=== PATIENT | female | born 1995 | race African-American/Black ===

== ENCOUNTER → 2020-05-18 | Outpatient (CLI) | payer MEDICAID ==
[~2020-05-18] MED LIST: ACHD5005 PO; AMOX500C2 PO; BENZ56AE TP; DCS100C PO; FERR325C PO; FRS325T PO; IBP600T1 PO; PREN1TAB25 PO; PREN1TAB71 PO
--- NOTE | 2020-05-18 10:53 | Diagnostic Imaging Report ---
INDICATION: survey. TECHNIQUE: Multiple real-time grayscale images were obtained over the gravid uterus. COMPARISON: None FINDINGS: There is a single live fetus in a cephalic presentation. heart rate was recorded at 142 bpm. Placenta is anterior and is somewhat low lying with tip approximately 1.7 cm from the internal cervical os. Amniotic fluid index is 12.5 cm. Cervical length is 5.1 cm. survey demonstrates bladder, stomach and brain to be unremarkable. There is four-chambered heart. There is three-vessel cord with normal insertion. Spines are unremarkable. kidneys are somewhat limited due to position. Biometrical measurements are as follows: Biparietal 5.26 cm, age 22 weeks 0 days. Head circumference 19.00 cm, age 21 weeks 2 days. Abdominal circumference 15.95 cm, age 21 weeks 1 days. Femur length 3.64 cm, age 21 weeks 4 days. Sonographic estimate age: 21 weeks 4 days. Sonographic estimated date of delivery: 09/24/2020. Estimated Weight: 415 gm (+/- 61 gm). LMP percentile: 89%. heart rate: 142 beats per minute. number: 1 of 1. IMPRESSION: Single live IUP 21 weeks 4 days gestational age with estimated date of confinement sonographically of 09/24/2020. survey is unremarkable. The placenta does appear to be low lying. A follow-up ultrasound to reevaluate placental position would be recommended. Dictated by: Dictated on workstation # [id number]
== END ==
LOC: RAD 10:00
PROVIDERS: ATTEND Nurse Practitioner Women's Health
DX: Z36.89 Encounter for other specified antenatal screening (principal); Z3A.21 21 weeks gestation of pregnancy
CPT/HCPCS: 76805

== ENCOUNTER → 2020-07-10 | Outpatient (CLI) | payer MEDICAID ==
--- NOTE | 2020-07-10 12:22 | Diagnostic Imaging Report ---
INDICATION: . TECHNIQUE: Multiple real-time grayscale images were obtained over the gravid uterus. COMPARISON: 05/18/2020. FINDINGS: The prior OB ultrasound exam of 05/18/2020 noted a single live fetus of approximately 21 weeks 4 days gestation. On this study, the fetus is again visualized. The fetus is cephalic in presentation. heart motion was noted and a rate of 140 BPM was recorded. There were no abnormalities identified. The kidneys were imaged today and appear to be within normal limits. The prior exam noted that the placenta is anterior and low lying. The placenta remains anterior. There is no evidence for a previa, however. The amniotic fluid volume is within normal limits. The cervix was identified and measures 4.3 cm in length. The growth parameters are fairly uniform and have progressed as expected since the prior exam. The estimated weight is in the 82nd percentile. IMPRESSION: 1. There is a single live fetus of approximately 29 weeks 6 days gestation +/-1.5 weeks. The EDC remains September 24, 2020. 2. There were no abnormalities identified. 3. The placenta is anterior but is no longer low lying. There is no previa. 4. The growth parameters have progressed as expected since the prior exam tending towards the high side of normal. Biometrical measurements are as follows: Biparietal 7.62 cm, age 30 weeks 4 days. Head circumference 27.46 cm, age 30 weeks 1 days. Abdominal circumference 24.09 cm, age 28 weeks 3 days. Femur length 5.69 cm, age 29 weeks 6 days. Sonographic estimate age: 29 weeks 6 days. Sonographic estimated date of delivery: 09/19/2020. Estimated Weight: 1348 gm (+/- 197 gm). LMP percentile: 82%. heart rate: 140 beats per minute. number: 1 of 1. Dictated by: Dictated on workstation # [id number]
== END ==
LOC: RAD 10:00
PROVIDERS: ATTEND Obstetrics & Gynecology
DX: Z34.93 Encounter for supervision of normal pregnancy, unspecified, third trimester (principal); Z3A.29 29 weeks gestation of pregnancy
CPT/HCPCS: 76805

== ENCOUNTER → 2020-09-14 | Outpatient (CLI) | payer MEDICAID | LOC: LABNPT 05:20 | PROVIDERS: ATTEND Obstetrics & Gynecology | DX: Z01.812 Encounter for preprocedural laboratory examination (principal); Z20.828 Contact with and (suspected) exposure to other viral communicable diseases | CPT/HCPCS: 87635 ==

== ENCOUNTER 2020-09-19 06:00 | Inpatient (IN) | payer OTHER, MEDICAID ==
[2020-09-19] VITALS (66 sets, daily range): BP systolic 101–138; BP diastolic 55–90
[~2020-09-19] VITALS: Ht 170.2 cm; Wt 108.3 kg
--- NOTE | 2020-09-19 06:13 | NUR ---
TOBY JACOBSON presented to unit via ambulation from ED, accompanied by s.o. for induction of labor. TOBY JACOBSON weighed, gowned, voided, and to bed. EFHM and TOCO applied, VS taken. TOBY JACOBSON oriented to bed controls, call light, TV, heat, and A/C controls.
[2020-09-19] MEDS ORDERED: MINERAL OIL CONCENTRATE 99.9% 15 ML UDC TOP PRN (07:15)
[2020-09-19] MEDS ORDERED: OXYTOCIN PRE-MIX DRIP 500 ML IV SCH ×2 (07:15→18:45)
[2020-09-19] MEDS ORDERED: D5 LR IV SOLUTION 1,000 ML IV SCH (07:15)
[2020-09-19 07:26] LABS: BASOPHILS % (AUTO) 0 % (0-10); EOSINOPHILS # (AUTO) 0.1 10^3/uL (0.0-0.3); EOSINOPHILS % (AUTO) 1 % (0-10); HEMATOCRIT 31 % (35-52); HEMOGLOBIN 9.9 g/dL (11.5-16.0); LYMPHOCYTES # (AUTO) 2.1 10^3/uL (1.0-4.0); LYMPHOCYTES % (AUTO) 25 % (12-44); MEAN CORPUSCULAR HEMOGLOBIN 26 pg (25-34); MEAN CORPUSCULAR HGB CONC 32 g/dL (32-36); MEAN CORPUSCULAR VOLUME 83 fL (80-99); MEAN PLATELET VOLUME 11.8 fL (9.0-12.2); MONOCYTES % (AUTO) 12 % (0-12); NEUTROPHILS % (AUTO) 60 % (42-75); PLATELET COUNT 258 10^3/uL (130-400); WHITE BLOOD COUNT 8.2 10^3/uL (4.3-11.0)
--- NOTE | 2020-09-19 07:27 | History & Physical-OB ---
OB - Chief Complaint & HPI Date/Time Date of Admission: Date of Admission: Sep 19, 2020 at 06:05 Time Seen by a Provider: 07:30 Chief Complaint/History OB-Reason for Admission/Chief: Induction of Labor (39 1/7 weeks to prevent complications) Hx : 4 Hx Para: 3 Expected Date of Delivery: Sep 24, 2020 Indication for : other (to prevent complications, EDC 09/24/2020) Admission Nurse Assessment Rev: Yes History of Labs O+/- HIV - HBsAG- GBS - VDRL NR Rub I Allergies and Home Medications Allergies Coded Allergies: No Known Drug Allergies (Unverified , 06/24/13) Home Medications Acetaminophen 500 Mg Tablet, 1,000 MG PO Q8HR Prescribed by: KACIE ORTEGA on 09/20/20 1322 Ferrous Sulfate 325 Mg Tablet, 325 MG PO DAILY Prescribed by: KACIE ORTEGA on 09/20/20 1322 Ibuprofen 600 Mg Tablet, 600 MG PO Q6HR Prescribed by: KACIE ORTEGA on 09/20/20 1322 Vit#96/Ferrous Fum/Fa 1 Each Tablet, 1 EACH PO DAILY, (Reported) Patient Home Medication List Home Medication List Reviewed: Yes OB - History Hx of Present Ultrasounds: Normal mid trimester US (did have lowlying placenta that resolved; redated by US to 09/24/2020 due to incorrect LMP) Obstetrical Complications: None Medical Complications: None Information Induced Hypertension: No Maternal Gestational Diabetes: No Hemorrhage: No Obstetrical History Hx : 4 Hx Para: 3 Hx # Term Pregnancies: 3 Hx # Pregnancies: 0 Number of Living Children: 3 Hx Termination: No Hx Total # of Abortions (Spona: 0 Hx Multiple Gestation: No Hx Stillbirth: No Hx Complication: No Hx Induced Hypertens: No Hx Maternal Gestational Diabet: No Delivery History Hx Dystocia: No Hx Forceps Assisted Delivery: No Hx Vacuum Extraction Assisted: No Hx Placenta Abnormality: No Hx Distress: No Hx Large For Gestational Age I: No Hx Small for Gestational Age I: No Hx Section: No Hx Vaginal Delivery Post C-Sec: No Hx Blood Disorders: Yes (anemia) Adverse Rxn to Tranfusion: No Patient Past Medical History NC Social History/Family History HIV/AIDS: No Sexually Transmitted Disease: No Alcohol Use: Denies Use Smoking Cessation: Never smoker Immunizations Hepatitis A: No Hepatitis B: No Tetanus Booster (TDap): Less than 5yrs (07/19/2020) Date of Influenza Vaccine: Jul 19, 2020 Rubella: immune RPR/VDRL: Negative GBS Status: Negative HBsAG: Negative OB - Admission Exam Physical Exam Vitals: see RN Notes Heart: Rhythm Normal Lungs: Clear, Crackles Abdomen: Gravid Extremities: Edema (1+) Reflexes: Normal Cervical Dilatation: 2cm Effacement: 50% Station: -2 Membranes: Intact Heart Rate: 140's Accelerations: Accelerations Present Decelerations: No Decelerations Short Term Variability: Present Casting Machine Operator Variability: Average (6-25) Contractions on Admission: >10 Minutes Apart Labs Laboratory Tests Test 09/19/20 06:45 Range/Units OB - Assessment/Plan/Diagnosis Assessment Assessment: induction of labor Admission Dx 1. 39 + week gestation for induction of labor 2. antepartume anemia Plan AROM and augmentation Desires epidural Admission Status: Inpatient Order (span 2 midnights) (labor) Reason for Inpatient Admission: labor Plan Plan: Induction KACIE ORTEGA DO Sep 19, 2020 07:27
[2020-09-19 07:36] LABS: ALANINE AMINOTRANSFERASE 11 U/L (0-55); ALBUMIN 3.4 GM/DL (3.2-4.5); ALKALINE PHOSPHATASE 148 U/L (40-136); BILIRUBIN,TOTAL 0.2 MG/DL (0.1-1.0); BUN/CREATININE RATIO 16; CARBON DIOXIDE 19 MMOL/L (21-32); CHLORIDE 106 MMOL/L (98-107); GFR ESTIMATED > 60; GLUCOSE 127 MG/DL (70-105); POTASSIUM 3.7 MMOL/L (3.6-5.0); SODIUM 134 MMOL/L (135-145)
[2020-09-19] MEDS ORDERED: diphenhydrAMINE 50 MG/ML INJ (BENADRYL) IV PRN (10:15)
[2020-09-19] MEDS ORDERED: LACTATED RINGERS 1,000 ML IV ONE (10:15)
[2020-09-19] MEDS ORDERED: ONDANSETRON 4 MG/2 ML (SDV) Z0FRAN IV PRN (10:15)
[2020-09-19] MEDS ORDERED: fentaNYL 2 mcg/ml BUPIVA 0.125 100 ML IV SCH (10:15)
[2020-09-19] MEDS ORDERED: NALOXONE 0.4 MG/ML 1 ML (NARCAN) VIAL IV PRN (10:15)
[2020-09-19] MEDS ORDERED: CATHETER FLUSH 10 ML SYR IV PRN (10:15)
[2020-09-19] MEDS ORDERED: fentaNYL INJECTION 100 MCG/2 ML AMP ONE (10:54)
[2020-09-19] MEDS ORDERED: BUPIVACAINE 0.25% 30 ML (SENSORCAINE) VIAL ONE (10:54)
[2020-09-19] MEDS ORDERED: CATHETER FLUSH 10 ML SYR IV SCH ×2 (14:00→22:00)
[2020-09-19 14:45] LABS: BILIRUBIN,URINE NEGATIVE (NEGATIVE); CLARITY,URINE CLEAR; COLOR,URINE YELLOW; GLUCOSE, URINE (UA) NEGATIVE (NEGATIVE); KETONES,URINE NEGATIVE (NEGATIVE); LEUKOCYTE ESTERASE ,URINE NEGATIVE (NEGATIVE); NITRITE,URINE NEGATIVE (NEGATIVE); PROTEIN,URINE NEGATIVE (NEGATIVE)
[2020-09-19 15:09] LABS: BACTERIA,URINE NEGATIVE /HPF; SQUAMOUS EPITHELIAL CELL,UR 0-2 /HPF; WBC,URINE RARE /HPF
[2020-09-19] MEDS ORDERED: LIDOCAINE 1% INJ 20 ML 20 ML VIAL ONE (17:11)
[2020-09-19] MEDS ORDERED: LIDOCAINE/EPI 2% 1:200,00 (XYLOCAINE) 10 ML VIAL ONE ×2 (17:13)
[2020-09-19] MEDS ORDERED: MEASLES,MUMPS,RUBELLA 1 EA INJ SQ ONE (18:45)
[2020-09-19] MEDS ORDERED: WITCH HAZEL(TUCKS) 40 EA JAR TOP PRN (18:45)
[2020-09-19] MEDS ORDERED: TETANUS,DIPTH,PERTUSS P/F (BOOSTRIX) 0.5 ML VIAL IM ONE (18:45)
[2020-09-19] MEDS ORDERED: BENZOCAINE/MENTHOL (DERMOPLAST) 60 ML CAN TP PRN (18:45)
--- NOTE | 2020-09-19 18:45 | OB Labor & Delivery Record ---
Vag Delivery Note Vag Delivery Note Date of Delivery: 09/19/20 Preoperative Diagnosis: Terra Trevino is a (24 /Para 4/3 ,Gestational Age 39 1/7 weeks Postoperative Diagnosis: Same Surgeon: KACIE ORTEGA Anesthesia: epidrual Delivery Type: vaginal Findings: Viable male infant, apgars pending, weight 7#12 ounces Lacerations: none Intact placenta with 3 vessel cord. Nuchal cord x 2 delivered through, compound presentation with had a chin, no body cord or shoulder dystocia Estimated Blood Loss: 200 ml Complications: None Condition: Stable Description of Procedure: The patient is a 24 year old female who presented for induction of labor at term to prevent complications. She was admitted and informed consent was obtained. Her labor course was remarkable for oxytocin augmentation, AROM. She progressed to complete dilatation and began to push. She was then set up for delivery. The 's head was delivered atraumatically in the EFREM position. The shoulders and remainder of the infant's body were then delivered without difficulty. Upon delivery, the head was held below the level of the perineum and the mouth and nares were bulb suctioned. The cord was doubly clamped and cut and the infant was handed off to the pediatric staff. An intact placenta with an accessory with 3-vessel cord, but unusual cord twists, delivered via Rafael and there was found to be minimal bleeding.~ Vigorous fundal massage was performed and the fundus was found to be firm. IV oxytocin was given. Examination of the vagina and perineum revealed a no laceration. Following the delivery, sponge, instrument and needle counts were correct. Mom and baby were both in stable condition in the labor suite. Vitals - Labs Vital Signs - I&O Vital Signs Date Time Temp Pulse Resp B/P (MAP) Pulse Ox O2 Delivery O2 Flow Rate FiO2 09/19/20 14:35 83 16 119/60 (79) Non Rebreather 15.00 09/19/20 14:20 80 16 122/63 (82) Non Rebreather 15.00 09/19/20 14:05 82 16 122/67 (85) Room Air 09/19/20 13:55 75 16 121/66 (84) 99 Room Air 09/19/20 13:40 36.4 95 16 118/61 (80) 99 Room Air 09/19/20 13:20 90 16 116/73 (87) 99 Room Air 09/19/20 13:05 77 16 115/60 (78) 98 Room Air 09/19/20 12:50 78 16 118/63 (81) 100 Room Air 09/19/20 12:35 86 16 113/69 (84) 100 Room Air 09/19/20 12:25 87 16 115/70 (85) 100 Room Air 09/19/20 12:05 87 16 115/90 (98) 100 Room Air 09/19/20 12:01 98 16 129/78 (95) 100 Room Air 09/19/20 11:58 91 16 122/63 (82) 100 Room Air 09/19/20 11:55 97 16 130/69 (89) 100 Room Air 09/19/20 11:53 91 16 108/81 (90) 100 Room Air 09/19/20 11:50 93 16 131/77 (95) 100 Room Air 09/19/20 11:45 91 16 123/69 (87) 100 Room Air 09/19/20 11:43 83 16 117/67 (84) 100 Non Rebreather 15.00 09/19/20 11:40 94 16 117/58 (77) 100 Non Rebreather 15.00 09/19/20 11:38 81 16 118/58 (78) 100 Non Rebreather 15.00 09/19/20 11:35 85 16 118/57 (77) 100 Non Rebreather 15.00 09/19/20 11:30 97 16 129/63 (85) 100 Non Rebreather 15.00 09/19/20 11:28 93 16 129/71 (90) 100 Non Rebreather 15.00 09/19/20 11:24 97 16 131/77 (95) 100 Non Rebreather 15.00 09/19/20 11:21 88 16 117/65 (82) 100 Non Rebreather 15.00 09/19/20 11:18 93 16 125/71 (89) 100 Non Rebreather 15.00 09/19/20 11:15 92 16 122/65 (84) 100 Non Rebreather 15.00 09/19/20 11:12 99 16 126/66 (86) 100 Non Rebreather 15.00 09/19/20 11:09 100 16 133/64 (87) 100 Non Rebreather 15.00 12/29/20 11:06 103 16 134/77 (96) 100 Non Rebreather 15.00 09/19/20 11:03 98 16 126/76 (93) 100 Non Rebreather 15.00 09/19/20 10:50 94 16 134/80 (98) 100 Non Rebreather 15.00 09/19/20 10:35 36.3 91 16 124/71 (88) 100 Non Rebreather 15.00 09/19/20 10:20 86 16 117/72 (87) 100 Non Rebreather 15.00 09/19/20 10:05 96 16 128/79 (95) 100 Non Rebreather 15.00 09/19/20 09:50 95 16 127/79 (95) 98 Room Air 09/19/20 09:35 91 16 117/78 (91) 99 Room Air 09/19/20 09:20 86 16 116/72 (87) Room Air 09/19/20 09:05 88 16 122/76 (91) 98 Room Air 09/19/20 08:50 83 16 120/75 (90) Room Air 09/19/20 08:35 92 16 126/82 (97) Room Air 09/19/20 08:20 36.6 86 16 127/73 (91) Room Air 09/19/20 07:38 36.7 103 16 99 Room Air 09/19/20 07:30 36.6 96 16 124/73 (90) 98 Room Air Labs Laboratory Tests 09/19/20 06:45: White Blood Count 8.2, Red Blood Count 3.75L, Hemoglobin 9.9L, Hematocrit 31L, Mean Corpuscular Volume 83, Mean Corpuscular Hemoglobin 26, Mean Corpuscular Hemoglobin Concent 32, Red Cell Distribution Width 15.9H, Platelet Count 258, Mean Platelet Volume 11.8, Immature Granulocyte % (Auto) 1, Neutrophils (%) (Auto) 60, Lymphocytes (%) (Auto) 25, Monocytes (%) (Auto) 12, Eosinophils (%) (Auto) 1, Basophils (%) (Auto) 0, Neutrophils # (Auto) 5.0, Lymphocytes # (Auto) 2.1, Monocytes # (Auto) 1.0, Eosinophils # (Auto) 0.1, Basophils # (Auto) 0.0, Immature Granulocyte # (Auto) 0.1, Sodium Level 134L, Potassium Level 3.7, Chloride Level 106, Carbon Dioxide Level 19L, Anion Gap 9, Blood Urea Nitrogen 11, Creatinine 0.70, Estimat Glomerular Filtration Rate > 60, BUN/Creatinine Ratio 16, Glucose Level 127H, Calcium Level 9.0, Corrected Calcium 9.5, Total Bilirubin 0.2, Aspartate Amino Transf (AST/SGOT) 17, Alanine Aminotransferase (A LT/SGPT) 11, Alkaline Phosphatase 148H, Total Protein 7.0, Albumin 3.4 09/19/20 14:30: Urine Color YELLOW, Urine Clarity CLEAR, Urine pH 7.0, Urine Specific [place] 1.010L, Urine Protein NEGATIVE, Urine Glucose (UA) NEGATIVE, Urine Ketones NEGATIVE, Urine Nitrite NEGATIVE, Urine Bilirubin NEGATIVE, Urine Urobilinogen 0 .2, Urine Leukocyte Esterase NEGATIVE, Urine RBC (Auto) NEGATIVE, Urine RBC NONE, Urine WBC RARE, Urine Squamous Epithelial Cells 0-2, Urine Crystals NONE, Urine Bacteria NEGATIVE, Urine Casts NONE, Urine Mucus NEGATIVE, Urine Culture Indicated NO KACIE ORTEGA DO Sep 19, 2020 18:45
[2020-09-19] MEDS ORDERED: DOCUSATE SODIUM 100 MG (COLACE) CAP PO SCH (21:00)
[2020-09-19] MEDS ORDERED: ACETAMINOPHEN 500 MG TAB (TYLENOL) PO SCH (22:00)
--- NOTE | 2020-09-19 22:15 | NUR ---
Epidural cath removed, cath tip in tact, site wnl left o/a. Pt up standby to bathroom, pericare pads changed, first void noted since delivery, pt to and transferred to pp unit room 308, pt remains under care of this rn. oriented to call system and surroundings, and info packet. will cont to monitor.
[2020-09-20 00:10] VITALS: BP 111/54
[2020-09-20] MEDS: IBUPROFEN 600 MG (MOTRIN) TAB PO SCH ×3 (02:47→16:22)
[2020-09-20 02:50] VITALS: BP 103/54
[2020-09-20 05:47] LABS: BASOPHILS % (AUTO) 0 % (0-10); EOSINOPHILS # (AUTO) 0.1 10^3/uL (0.0-0.3); EOSINOPHILS % (AUTO) 1 % (0-10); HEMATOCRIT 30 % (35-52); HEMOGLOBIN 9.5 g/dL (11.5-16.0); LYMPHOCYTES # (AUTO) 2.3 10^3/uL (1.0-4.0); LYMPHOCYTES % (AUTO) 24 % (12-44); MEAN CORPUSCULAR HEMOGLOBIN 26 pg (25-34); MEAN CORPUSCULAR HGB CONC 32 g/dL (32-36); MEAN CORPUSCULAR VOLUME 83 fL (80-99); MEAN PLATELET VOLUME 11.1 fL (9.0-12.2); MONOCYTES # (AUTO) 1.1 10^3/uL (0.0-1.0); MONOCYTES % (AUTO) 11 % (0-12); NEUTROPHILS # (AUTO) 5.9 10^3/uL (1.8-7.8); NEUTROPHILS % (AUTO) 63 % (42-75); PLATELET COUNT 231 10^3/uL (130-400); WHITE BLOOD COUNT 9.5 10^3/uL (4.3-11.0)
[2020-09-20] MEDS ORDERED: PRENATAL VITAMIN 1 EA TAB PO SCH (07:00)
--- NOTE | 2020-09-20 08:54 | Anesthesia-Regional Post-Op ---
Regional Patient Condition Mental Status: Alert, Oriented x3 Circulation: Same as Pre-Op Headache: Absent Sensation: Full Recovery Motor Block: Absent Post Op Complications Complications None Follow Up Care/Instructions Patient Instructions None needed. Anesthesia/Patient Condition Patient is doing well, no complaints, stable vital signs, no apparent adverse anesthesia problems. No complications reported per nursing. D/C home per [facility] [place] Criteria: ALLISON Alston CRNA Sep 20, 2020 08:54
[2020-09-20] MEDS ORDERED: FERROUS SULF 325 MG (IRON) TAB PO SCH (09:00)
--- NOTE | 2020-09-20 09:30 | NUR ---
Dr Patel here to see pt.
--- NOTE | 2020-09-20 09:37 | Postpartum Progress Note ---
Note Note Day # 1 s/p Subjective: Patient is without complaints. Ambulating, voiding. Tolerating a regular diet w ithout nausea or vomiting. Normal lochia. Pain is well controlled with oral pain medications. breast feeding. Hoping to go home today. Objective: Laboratory Tests Test 09/19/20 14:30 09/20/20 05:35 Range/Units Urine Color YELLOW Urine Clarity CLEAR Urine pH 7.0 5-9 Urine Specific [place] 1.010 L 1.016-1.022 Urine Protein NEGATIVE NEGATIVE Urine Glucose (UA) NEGATIVE NEGATIVE Urine Ketones NEGATIVE NEGATIVE Urine Nitrite NEGATIVE NEGATIVE Urine Bilirubin NEGATIVE NEGATIVE Urine Urobilinogen 0.2 < = 1.0 MG/DL Urine Leukocyte Esterase NEGATIVE NEGATIVE Urine RBC (Auto) NEGATIVE NEGATIVE Urine RBC NONE /HPF Urine WBC RARE /HPF Urine Squamous Epithelial Cells 0-2 /HPF Urine Crystals NONE /LPF Urine Bacteria NEGATIVE /HPF Urine Casts NONE /LPF Urine Mucus NEGATIVE /LPF Urine Culture Indicated NO White Blood Count 9.5 4.3-11.0 10^3/uL Red Blood Count 3.64 L 3.80-5.11 10^6/uL Hemoglobin 9.5 L 11.5-16.0 g/dL Hematocrit 30 L 35-52 % Mean Corpuscular Volume 83 80-99 fL Mean Corpuscular Hemoglobin 26 25-34 pg Mean Corpuscular Hemoglobin Concent 32 32-36 g/dL Red Cell Distribution Width 15.9 H 10.0-14.5 % Platelet Count 231 130-400 10^3/uL Mean Platelet Volume 11.1 9.0-12.2 fL Immature Granulocyte % (Auto) 1 % Neutrophils (%) (Auto) 63 42-75 % Lymphocytes (%) (Auto) 24 12-44 % Monocytes (%) (Auto) 11 0-12 % Eosinophils (%) (Auto) 1 0-10 % Basophils (%) (Auto) 0 0-10 % Neutrophils # (Auto) 5.9 1.8-7.8 10^3/uL Lymphocytes # (Auto) 2.3 1.0-4.0 10^3/uL Monocytes # (Auto) 1.1 H 0.0-1.0 10^3/uL Eosinophils # (Auto) 0.1 0.0-0.3 10^3/uL Basophils # (Auto) 0.0 0.0-0.1 10^3/uL Immature Granulocyte # (Auto) 0.1 0.0-0.1 10^3/uL Physical Exam: General - Alert and oriented, no apparent distress Abdomen - Soft, appropriately tender to palpation, non-distended, fundus firm at umbilicus Extremities - no edema, negative Saji's bilaterally Assessment: 1. post- day # 1, status post spontaneous vaginal delivery. Recovering well, hemodynamically stable 2. antepartum anemia - stable/on iron. Plan: Routine care. Encourage breast feeding. Encourage ambulation. Ferrous sulfate supplementation. Plan for discharge today if baby is discharged. Vitals - Labs Vital Signs - I&O Vital Signs Date Time Temp Pulse Resp B/P (MAP) Pulse Ox O2 Delivery O2 Flow Rate FiO2 09/20/20 02:50 36.5 92 16 103/54 (70) 98 Room Air 09/20/20 00:10 36.3 93 16 111/54 (73) 98 Room Air 09/19/20 22:05 73 16 108/57 (74) Room Air 09/19/20 21:35 92 16 116/64 (81) Room Air 09/19/20 20:35 91 16 110/67 (81) Room Air 09/19/20 20:05 93 16 115/67 (83) Room Air 09/19/20 19:50 16 117/57 (77) Room Air 09/19/20 19:20 37.0 92 16 122/56 (78) Room Air 09/19/20 19:05 36.8 82 16 119/60 (79) Room Air 09/19/20 18:50 94 16 130/63 (85) Room Air 09/19/20 18:20 93 16 124/58 (80) Room Air 09/19/20 18:05 100 16 132/56 (81) Room Air 09/19/20 17:55 90 16 125/61 (82) Room Air 09/19/20 17:35 90 16 129/70 (89) Non Rebreather 15.00 09/19/20 17:20 100 16 138/74 (95) Non Rebreather 15.00 09/19/20 16:50 36.3 90 16 135/79 (97) Room Air 09/19/20 16:35 86 16 107/58 (74) Room Air 09/19/20 16:20 83 16 108/55 (72) Room Air 09/19/20 16:05 74 16 114/61 (78) Room Air 09/19/20 15:50 80 16 101/57 (72) Room Air 09/19/20 15:35 36.3 74 16 112/58 (76) Room Air 09/19/20 15:20 86 16 121/74 (90) Room Air 09/19/20 15:05 79 16 109/65 (80) Room Air 09/19/20 14:55 84 16 114/68 (83) Non Rebreather 15.00 09/19/20 14:35 83 16 119/60 (79) Non Rebreather 15.00 09/19/20 14:20 80 16 122/63 (82) Non Rebreather 15.00 09/19/20 14:05 82 16 122/67 (85) Room Air 09/19/20 13:55 75 16 121/66 (84) 99 Room Air 09/19/20 13:40 36.4 95 16 118/61 (80) 99 Room Air 09/19/20 13:20 90 16 116/73 (87) 99 Room Air 09/19/20 13:05 77 16 115/60 (78) 98 Room Air 09/19/20 12:50 78 16 118/63 (81) 100 Room Air 09/19/20 12:35 86 16 113/69 (84) 100 Room Air 09/19/20 12:25 87 16 115/70 (85) 100 Room Air 09/19/20 12:05 87 16 115/90 (98) 100 Room Air 09/19/20 12:01 98 16 129/78 (95) 100 Room Air 09/19/20 11:58 91 16 122/63 (82) 100 Room Air 09/19/20 11:55 97 16 130/69 (89) 100 Room Air 09/19/20 11:53 91 16 108/81 (90) 100 Room Air 09/19/20 11:50 93 16 131/77 (95) 100 Room Air 09/19/20 11:45 91 16 123/69 (87) 100 Room Air 09/19/20 11:43 83 16 117/67 (84) 100 Non Rebreather 15.00 09/19/20 11:40 94 16 117/58 (77) 100 Non Rebreather 15.00 09/19/20 11:38 81 16 118/58 (78) 100 Non Rebreather 15.00 09/19/20 11:35 85 16 118/57 (77) 100 Non Rebreather 15.00 09/19/20 11:30 97 16 129/63 (85) 100 Non Rebreather 15.00 09/19/20 11:28 93 16 129/71 (90) 100 Non Rebreather 15.00 09/19/20 11:24 97 16 131/77 (95) 100 Non Rebreather 15.00 09/19/20 11:21 88 16 117/65 (82) 100 Non Rebreather 15.00 09/19/20 11:18 93 16 125/71 (89) 100 Non Rebreather 15.00 09/19/20 11:15 92 16 122/65 (84) 100 Non Rebreather 15.00 09/19/20 11:12 99 16 126/66 (86) 100 Non Rebreather 15.00 09/19/20 11:09 100 16 133/64 (87) 100 Non Rebreather 15.00 09/19/20 11:06 103 16 134/77 (96) 100 Non Rebreather 15.00 09/19/20 11:03 98 16 126/76 (93) 100 Non Rebreather 15.00 09/19/20 10:50 94 16 134/80 (98) 100 Non Rebreather 15.00 09/19/20 10:35 36.3 91 16 124/71 (88) 100 Non Rebreather 15.00 09/19/20 10:20 86 16 117/72 (87) 100 Non Rebreather 15.00 09/19/20 10:05 96 16 128/79 (95) 100 Non Rebreather 15.00 09/19/20 09:50 95 16 127/79 (95) 98 Room Air Labs Laboratory Tests 09/19/20 14:30: Urine Color YELLOW, Urine Clarity CLEAR, Urine pH 7.0, Urine Specific [place] 1.010L, Urine Protein NEGATIVE, Urine Glucose (UA) NEGATIVE, Urine Ketones NEGATIVE, Urine Nitrite NEGATIVE, Urine Bilirubin NEGATIVE, Urine Urobilinogen 0.2, Urine Leukocyte Esterase NEGATIVE, Urine RBC (Auto) NEGATIVE, Urine RBC NONE, Urine WBC RARE, Urine Squamous Epithelial Cells 0-2, Urine Crystals NONE, Urine Bacteria NEGATIVE, Urine Casts NONE, Urine Mucus NEGATIVE, Urine Culture Indicated NO 09/20/20 05:35: White Blood Count 9.5, Red Blood Count 3.64L, Hemoglobin 9.5L, Hematocrit 30L, Mean Corpuscular Volume 83, Mean Corpuscular Hemoglobin 26, Mean Corpuscular Hemoglobin Concent 32, Red Cell Distribution Width 15.9H, Platelet Count 231, Mean Platelet Volume 11.1, Immature Granulocyte % (Auto) 1, Neutrophils (%) (Auto) 63, Lymphocytes (%) (Auto) 24, Monocytes (%) (Auto) 11, Eosinophils (%) (Auto) 1, Basophils (%) (Auto) 0, Neutrophils # (Auto) 5.9, Lymphocytes # (Auto) 2.3, Monocytes # (Auto) 1.1H, Eosinophils # (Auto) 0.1, Basophils # (Auto) 0.0, Immature Granulocyte # (Auto) 0.1 KACIE ORTEGA DO Sep 20, 2020 09:37
[2020-09-20 09:45] VITALS: BP 116/71
--- NOTE | 2020-09-20 12:30 | NUR ---
Report rec'd from Oni Hester RN at this time
[2020-09-20] MEDS ORDERED: IBUP-844 PO (13:22)
[2020-09-20] MEDS ORDERED: ACET-93 PO (13:22)
[2020-09-20] MEDS ORDERED: FERR325T18 PO (13:22)
--- NOTE | 2020-09-20 13:23 | Discharge Inst-Women's Service ---
Discharge Inst-Women's Serv Depart Medication/Instructions New, Converted or Re-Newed RX: Transmitted to Pharmacy Final Diagnosis 39 week gestation vaginal delivery antepartum anemia Problems Reviewed?: Yes Consults/Follow Up Additional Follow Up: Yes (6 [place] pp exam) Activity Activity: Activity as Tolerated Driving Instructions: You May Drive NO SMOKING: NO SMOKING Nothing Inside Vagina: No Douching, No [place], No Tampons Diet Discharge Diet: No Restrictions Symptoms to Report to : Swelling Increased, Bleeding Excessive, Pain Increased, Fever Over 101 Degrees F, Vaginal Bleeding Increase, Cramps in Feet or Legs, Vaginal Discharge Foul For Any Problems or Questions: Contact Your Physician KACIE ORTEGA DO Sep 20, 2020 13:23
[2020-09-20 16:00] VITALS: BP 124/77
[2020-09-20 20:07] VITALS: BP 138/80
--- NOTE | 2020-09-20 20:07 | NUR ---
D/C instructions given & explained, including next med doses, F/U appt, etc, pt. verbalized understanding & signed, copy of D/C instructions to pt. Pt. left [facility] via W/C escorted by Urvashi Ureña RN, SO carrying infant in carseat, pt's belongings w/pt. Pt. & infant properly secured in private vehicle, to home w/SO.
== END 2020-09-20 20:07 | disposition home or self-care (01) | DRG 807 ==
LOC: LDRP 06:05
PROVIDERS: ADMIT Obstetrics & Gynecology; ATTEND Obstetrics & Gynecology
PROC: 10E0XZZ Delivery of Products of Conception, External Approach (ICD-10-PCS; principal; 2020-09-19)
PROC: 10907ZC Drainage of Amniotic Fluid, Therapeutic from Products of Conception, Via Natural or Artificial Opening (ICD-10-PCS; 2020-09-19)
DX: O99.02 Anemia complicating childbirth (principal); Z37.0 Single live birth; Z3A.39 39 weeks gestation of pregnancy; D64.9 Anemia, unspecified; O69.81X0 Labor and delivery complicated by cord around neck, without compression, not applicable or unspecified
CPT/HCPCS: 36415; 80053; 81000; 85025; 86850; 86900; 86901